=== PATIENT | female | born 1970 | race Caucasian/White ===

== ENCOUNTER 2017-07-29 13:07 | Emergency (ER) | payer BC ==
--- NOTE | 2017-07-29 13:15 | EDM.PDOC ---
ED HPI GENERAL MEDICAL PROBLEM - General Chief Complaint: Upper Extremity Injury/Pain Stated Complaint: [facility] Time Seen by Provider: 07/29/17 13:15 - History of Present Illness INITIAL COMMENTS - FREE TEXT/NARRATIVE: 47-year-old female presents emergency room she is brought in by EMS. She's having an unusual feeling in her right arm. Patient developed a sense of numbness around her right wrist this extended up to her shoulder did not go into her neck she was not associated with any chest pain chest pressure breathing difficulties or shortness of breath. Patient does give an intermittent history of her hand and wrist feeling funny when she gets up but this isn't a persistent constant problem and is intermittent. However, she notices at it and off she describes it is very numb tingling sensation that she notices in her hand and fingers she cannot identify which fingers are affected just feels like her whole hand. She has not had any speech problems any facial numbness or facial drooping she has not had any left lower extremity weakness. - Related Data Allergies Allergy/AdvReac Type Severity Reaction Status Date / Time No Known Allergies Allergy Verified 07/29/17 13:23 Home Meds: Home Meds Hydrochlorothiazide [Hydrochlorothiazide] 25 mg PO DAILY 07/29/17 [History] Losartan Potassium [Losartan Potassium] 25 mg PO DAILY 07/29/17 [History] Potassium Chloride [Potassium Chloride] 2 tab PO DAILY 07/29/17 [History] ED ROS GENERAL - Review of Systems Review Of Systems: See Below Constitutional: Reports: No Symptoms HEENT: Reports: No Symptoms Respiratory: Reports: No Symptoms Cardiovascular: Reports: No Symptoms GI/Abdominal: Reports: No Symptoms : Reports: No Symptoms Musculoskeletal: Reports: No Symptoms Skin: Reports: No Symptoms Neurological: Reports: Other (Right arm numbness no weakness in any extremities) . Denies: Pre-Existing Deficit, Seizure, Syncope, Trouble Speaking, Difficulty Walking Psychiatric: Reports: No Symptoms Immunologic: Reports: No Symptoms ED EXAM, GENERAL - Physical Exam Exam: See Below Exam Limited By: No Limitations General Appearance: Alert, No Apparent Distress Eye Exam: Bilateral Eye: EOMI, Normal Inspection, PERRL Ears: Normal External Exam, Normal Canal, Hearing Grossly Normal, Normal TMs Nose: Normal Inspection, Normal Mucosa Throat/Mouth: Normal Inspection, Normal Lips, Normal Teeth, Normal Gums, Normal Oropharynx, Normal Voice, No Airway Compromise Head: Atraumatic, Normocephalic Neck: Normal Inspection, Supple, Non-Tender, Full Range of Motion. No: Lymphadenopathy (L), Lymphadenopathy (R), Tender Midline Respiratory/Chest: No Respiratory Distress, Lungs Clear, Normal Breath Sounds Cardiovascular: Regular Rate, Rhythm, No Edema, No Murmur GI/Abdominal: Normal Bowel Sounds, Soft, Non-Tender Back Exam: Normal Inspection. No: CVA Tenderness (L), CVA Tenderness (R), Vertebral Tenderness Extremities: Normal Inspection, Normal Range of Motion, Non-Tender, No Pedal Edema Neurological: Other (Patient does have some tingling in her right hand this is mostly resolved at this point no strength the discrepancy between the right and left. Tinel's is negative Phalen's reversed Phalen's negative) Psychiatric: Normal Affect Course - Vital Signs Last Recorded V/S: Last Vital Signs Temp 36.3 C 07/29/17 13:24 Pulse 105 H 07/29/17 13:24 Resp BP 157/90 H 07/29/17 13:24 Pulse Ox 100 07/29/17 13:24 - Orders/Labs/Meds Orders: Active Orders 24 hr Category Date Time Status EKG Documentation Completion [RC] ASDIRECTED Care 07/29/17 16:01 Active Durable Medical Equipment for Discharge [DME for Oth 07/29/17 15:40 Ordered Discharge] [COMM] Stat EKG 12 Lead [EK] Stat Ther 07/29/17 16:01 Ordered Labs: Laboratory Tests 07/29/17 07/29/17 Range/Units 13:52 13:52 WBC 7.67 (3.98-10.04) K/mm3 RBC 4.05 (3.98-5.22) M/mm3 Hgb 9.6 L (11.2-15.7) gm/L Hct 31.9 L (34.1-44.9) % MCV 78.8 L (79.4-94.8) fl MCH 23.7 L (25.6-32.2) pg MCHC 30.1 L (32.2-35.5) g/dl RDW Std Deviation 54.2 H (36.4-46.3) fL Plt Count 399 H (182-369) K/mm3 MPV 9.8 (9.4-12.3) fl Neutrophils % (Manual) 72 H (40-60) % Band Neutrophils % 0 (0-10) % Lymphocytes % (Manual) 21 (20-40) % Atypical Lymphs % 0 % Monocytes % (Manual) 4 (2-10) % Eosinophils % (Manual) 2 (0.7-5.8) % Basophils % (Manual) 1 (0.1-1.2) Platelet Estimate Adequate Plt Morphology Comment Normal RBC Morph Comment Normal Sodium 141 (136-145) mEq/L Potassium 3.0 L (3.5-5.1) mEq/L Chloride 102 (98-107) mEq/L Carbon Dioxide 29 (21-32) mEq/L Anion Gap 13.0 (5-15) BUN 12 (7-18) mg/dL Creatinine 0.7 (0.55-1.02) mg/dL Est Cr Clr Drug Dosing 94.54 mL/min Estimated GFR (MDRD) > 60 (>60) mL/min BUN/Creatinine Ratio 17.1 (14-18) Glucose 147 H (74-106) mg/dL Calcium 8.8 (8.5-10.1) mg/dL Total Bilirubin 0.2 (0.2-1.0) mg/dL AST 24 (15-37) U/L ALT 28 (14-59) U/L Alkaline Phosphatase 70 (46-116) U/L Troponin I < 0.017 (0.00-0.056) ng/mL Total Protein 7.8 (6.4-8.2) g/dl Albumin 3.5 (3.4-5.0) g/dl Globulin 4.3 gm/dL Albumin/Globulin Ratio 0.8 L (1-2) TSH 3rd Generation 2.064 (0.358-3.74) uIU/mL - Re-Assessments/Exams Free Text/Narrative Re-Assessment/Exam: 07/29/17 15:42 Exam and laboratory evaluation nonconclusive patient presents with right arm discomfort that was brief started her wrist radiated up to her shoulder did not go to her neck. She has some nighttime and morning symptoms that could be consistent with carpal tunnel syndrome. However I'm not entirely convinced her neurologic exam is entirely normal at this point. Laboratory evaluation is concerning for microcytic anemia most likely iron deficient in origin the patient does take it iron tablet once daily but it doesn't sound like this is helping very much I did discuss this with the patient she should increase her iron to twice daily but follow-up in the clinic because of more evaluation and more definitive treatment for this as needed. Thyroid studies appear normal. Scans checking imaging I don't think this to be beneficial at this point. The patient agrees. They agree to follow-up in the clinic this next week. Departure - Departure Time of Disposition: 15:45 Disposition: Home, Self-Care Clinical Impression: Right arm pain, Carpal tunnel syndrome - Discharge Information Instructions: Carpal Tunnel Syndrome, [id number] Referrals: PCP,None [Primary Care Provider] - Forms: ED Department Discharge Additional Instructions: Return to the emergency room with any questions problems or worsening symptoms. Follow-up in the clinic early this next week for recheck. Wear your splint all the time to the weekend and then starting next week wear it at night only. You have an iron deficiency anemia this needs more definitive therapy and possible further evaluation discuss this on your clinic visit. Increase your iron to 1 tablet twice daily. - My Orders Last 24 Hours: My Active Orders 07/29/17 15:40 Durable Medical Equipment for Discharge [DME for Discharge] [COMM] Stat 07/29/17 16:01 EKG Documentation Completion [RC] ASDIRECTED EKG 12 Lead [EK] Stat - Assessment/Plan Last 24 Hours: My Active Orders 07/29/17 15:40 Durable Medical Equipment for Discharge [DME for Discharge] [COMM] Stat 07/29/17 16:01 EKG Documentation Completion [RC] ASDIRECTED EKG 12 Lead [EK] Stat
== END 2017-07-29 15:50 | disposition home or self-care (01) ==
LOC: JD.ED 13:07
DX: G56.01 Carpal tunnel syndrome, right upper limb (principal); Z79.899 Other long term (current) drug therapy
CPT/HCPCS: 36415; 80053; 84443; 84484; 85025; 99283; 99285-25

== ENCOUNTER 2025-05-24 22:16 | Emergency (ER) | payer BC ==
[2025-05-24] MEDS ORDERED: Sodium Chloride 0.9% 10 ML Syringe FLUSH PRN (22:32)
[2025-05-24 22:50] LABS: BASOPHILS ABSOLUTE AUTO 0.0 K/mm3 (0.0-0.2); BASOPHILS PERCENT AUTO 0.3 % (0.0-1.0); EOSINOPHILS ABSOLUTE AUTO 0.0 K/mm3 (0.0-0.4); EOSINOPHILS PERCENT AUTO 0.2 % (0.0-6.0); IMMATURE GRAN ABSOLUTE AUTO 0.03 K/mm3 (0.00-0.05); IMMATURE GRAN PERCENT AUTO 0.3 % (0.0-0.4); LYMPHOCYTES ABSOLUTE AUTO 1.2 K/mm3 (1.0-4.8); LYMPHOCYTES PERCENT AUTO 11.1 % (24.0-44.0); MEAN PLATELET VOLUME 10.2 fl (9.4-12.3); MONOCYTES ABSOLUTE AUTO 0.3 K/mm3 (0.0-0.8); MONOCYTES PERCENT AUTO 2.9 % (0.0-8.0); NEUTROPHILS ABSOLUTE AUTO 9.5 K/mm3 (1.8-7.7); NEUTROPHILS PERCENT AUTO 85.2 % (41.0-71.0); NRBC ABSOLUTE 0.00 (0.00-0.02); NRBC PERCENT 0.0 % (0.0-0.2); PLATELET COUNT,PLT 268 K/mm3 (150-400); RED BLOOD CELL COUNT 4.81 M/mm3 (4.10-5.30); WHITE BLOOD CELL COUNT,WBC 11.13 K/mm3 (3.9-11.3)
[2025-05-24 23:21] LABS: A/G RATIO 1.1 (1-2); ALANINE AMINOTRANSFERASE,ALT 28.0 U/L (14-59); ASPARTATE AMNIOTRANSFERASE,AST 22.0 U/L (15-37); BILIRUBIN TOTAL 0.3 mg/dL (0.2-1.0); BLOOD UREA NITROGEN,BUN 11.0 mg/dL (7-18); CARBON DIOXIDE,CO2 27.0 mEq/L (21-32); CHLORIDE,CL 100.0 mEq/L (98-107); CREATININE 0.9 mg/dL (0.55-1.02); EST CRCL DRUG DOSING (CG) 64.56 mL/min; ESTIMATED GFR 75.0 mL/min (>60); GLUCOSE RANDOM 277.0 mg/dL (70-99); POTASSIUM,K 3.7 mEq/L (3.5-5.1); PROTEIN TOTAL,TP 7.6 g/dl (6.4-8.2); SODIUM,NA 137.0 mEq/L (136-145); TROPONIN I HIGH SENSITIVITY 5.0 pg/mL (<=51)
[2025-05-24 23:24] LABS: APPEARANCE,URINE CLEAR (Clear); GLUCOSE,URINE 2+ (Negative); OCCULT BLOOD,URINE TRACE-INTACT (Negative)
[2025-05-24 23:49] LABS: SQUAMOUS EPITHELIAL CELLS,UR 0-5 /hpf (0-5)
== END 2025-05-25 02:10 | disposition home or self-care (01) ==
LOC: JD.ED 22:16
DX: R42 Dizziness and giddiness (principal); I10 Essential (primary) hypertension; Z86.16 Personal history of COVID-19; Z79.899 Other long term (current) drug therapy
CPT/HCPCS: 36415; 71045; 80053; 81001; 83735; 84484; 85025; 93005; 99284; J7030; 93010; 99283